=== PATIENT | female | born 1985 | race Caucasian/White ===

== ENCOUNTER 2018-06-15 06:24 | Day surgery (SDC) | payer BC ==
[2018-06-13 13:37] VITALS: BP 149/78
[2018-06-13 13:37] LABS: BASOPHILS % (AUTO) 0.5 % (0.0-5.0); HEMATOCRIT 38.1 % (36-48); LYMPHOCYTES % (AUTO) 34.7 % (21.0-51.0); MEAN CORPUSCULAR HEMOGLOBIN 31.3 pg (27.0-33.0); MEAN CORPUSCULAR HGB CONC 33.9 g/dL (32.0-36.0); MEAN CORPUSCULAR VOLUME 92.4 fL (79-99); MONOCYTES % (AUTO) 5.7 % (3.0-13.0); NEUTROPHILS % (AUTO) 58.1 % (40.0-77.0); PLATELET COUNT (AUTO) 240 K/uL (130-400); RED BLOOD CELL COUNT(AUTO) 4.13 MIL/uL (4.00-5.50); RED CELL DISTRIBUTION WIDTH 12.8 % (11.0-15.5)
[~2018-06-15] VITALS: Ht 149.9 cm; Wt 80.9 kg
[2018-06-15] VITALS (19 sets, daily range): BP systolic 109–162; BP diastolic 59–96
[2018-06-15] MEDS: CEFAZOLIN SODIUM 1 GM VIAL IVP SCH ×2 (06:00→08:30)
[~2018-06-15 06:24] MED LIST: LACTATED RINGERS 1000ML 1,000 ML IV SCH
[2018-06-15] MEDS ORDERED: SCOPOLAMINE HYDROBROMIDE 1 EACH ADH..PATCH TD ONE (07:38)
[2018-06-15] MEDS ORDERED: STRONG IODINE SOLUTION 30ML BOTTLE ONE (08:07)
[2018-06-15] MEDS ORDERED: SCOPOLAMINE HYDROBROMIDE 1 EACH ADH..PATCH TD SCH (08:15)
[2018-06-15] MEDS ORDERED: DEXAMETHASONE SOD PHOSPHATE 10MG/ML 1ML VIAL ONE (08:37)
[2018-06-15] MEDS ORDERED: LIDOCAINE PF 2% 5ML ABBOJECT ONE (08:37)
[2018-06-15] MEDS ORDERED: ONDANSETRON HCL 4 MG/2 ML VIAL ONE (08:37)
[2018-06-15] MEDS ORDERED: FENTANYL CITRATE PF 50 MCG/1 ML 2ML VIAL ONE ×2 (08:38→08:56)
[2018-06-15] MEDS ORDERED: PROPOFOL 10 MG/ML 20ML VIAL IV ONE (08:38)
[2018-06-15] MEDS ORDERED: MIDAZOLAM HCL 1 MG/ML 2ML VIAL ONE (08:38)
[2018-06-15] MEDS ORDERED: FERRIC SUBSULFATE TP ONE (10:00)
[2018-06-15] MEDS ORDERED: MEPERIDINE-PF 25 MG/ML SYG ONE (10:09)
--- NOTE | 2018-06-15 11:00 | NUR ---
RECEIVE PT RECEIVED FROM PACU VIA STRETCHER AWAKE ALERT ORIENTED X3. PT STABLE. STATES SHE HAS URGE TO VOID. OB PAD CLEAN, NO BLEEDING OR DISCHARGE NOTED.
--- NOTE | 2018-06-15 11:10 | NUR ---
ACTIVITY PT ASSISTED TO BATHROOM, AMBULATED WITHOUT ANY PROBLEMS, VOIDED X1, CLEAR YELLOW URINE.
[2018-06-15] MEDS ORDERED: IBUPROFEN 800 MG TAB PO SCH (11:30)
--- NOTE | 2018-06-15 11:30 | NUR ---
ABDOMINAL CRAMPS PT STATES SHE HAS ABDOMINAL CRAMPS SCALE OF 5, ASKED IF SHE CAN TAKE RX IBUPROFEN HERE BEFORE GOING HOME. PAGED DR. VERDE.
--- NOTE | 2018-06-15 11:40 | NUR ---
CALL BACK CALL BACK FROM DR. VERDE. PER DR. VERDE, MAY GIVE IBUPROFEN 800 MG PO X1 PRIOR TO DISCHARGE.
--- NOTE | 2018-06-15 11:45 | NUR ---
NOTE IBUPROFEN 800MG POX1 GIVEN TO PT WITH CRACKERS. PT TOLERATED WELL. INSTRUCTED PT THAT IF SHE NEEDS TO TAKE IBUPROFEN AGAIN, NEXT DOSE IS AFTER 8 HOURS. VERBALIZED UNDERSTANDING.
--- NOTE | 2018-06-15 11:55 | NUR ---
DISCHARGE PT STATES SHE IS READY TO GO HOME, WILL REST AT HOME. PT NOT IN ANY APPARENT DISTRESS. VOIDED PRIOR TO DISCHARGE. DISCHARGE INSTRUCTIONS GIVEN TO SISTER AND PT, BOTH VERBALIZED UNDERSTANDING.
== END 2018-06-15 11:55 | disposition home or self-care (01) ==
LOC: DAH 06:24
PROVIDERS: ATTEND Obstetrics & Gynecology
DX: D06.9 Carcinoma in situ of cervix, unspecified (principal); I10 Essential (primary) hypertension; Z85.42 Personal history of malignant neoplasm of other parts of uterus; Z79.899 Other long term (current) drug therapy; Z98.890 Other specified postprocedural states; J30.9 Allergic rhinitis, unspecified; E66.9 Obesity, unspecified
CPT/HCPCS: 36415; 57522; 84703; 85025; 86850; 86900; 86901; A4218; A4351; A4355; A4510; A4600; J0690; J1100; J2001; J2175; J2250; J2405; J2704; J3010 ×2; J7030; J7120 ×2

== ENCOUNTER 2018-07-07 13:31 | Emergency (ER) | payer BC ==
[2018-07-07] MEDS ORDERED: DEXAMETHASONE SOD PHOSPHATE 10MG/ML 1ML VIAL ONE (14:07)
[2018-07-07] MEDS ORDERED: DiphenhydrAMINE HCL 50 MG/ML VIAL ONE (14:07)
[2018-07-07] MEDS ORDERED: KETOROLAC TROMETHAMINE 30MG/ML ONE (14:07)
[2018-07-07] MEDS ORDERED: ONDANSETRON HCL 4 MG/2 ML VIAL ONE (14:17)
[2018-07-07 14:33] LABS: APPEARANCE,URINE Clear (CLEAR); BILIRUBIN,URINE Negative (NEGATIVE); COLOR,URINE Yellow (YELLOW); GLUCOSE, URINE (UA) Negative (NEGATIVE); KETONES,URINE Negative (NEGATIVE); LEUKOCYTE ESTERASE ,URINE Small (NEGATIVE); NITRATE,URINE Negative (NEGATIVE); OCCULT BLOOD,URINE Trace (NEGATIVE); PROTEIN,URINE Negative (NEGATIVE); UROBILINOGEN,URINE 0.2 mg/dL (0.2-1.0)
[2018-07-07 14:35] LABS: HCG,QUAL RESULT NEGATIVE (NEGATIVE)
[2018-07-07 14:58] LABS: BACTERIA,URINE Few /HPF (None Seen); WBC,URINE 0-1 /HPF (0-1); YEAST,URINE BUDDING Few /HPF (None Seen)
[2018-07-07 14:59] LABS: MUCUS,URINE Few LPF (None Seen); SQUAMOUS EPITHELIAL CELL,UR Few /HPF (0-2)
== END 2018-07-07 15:23 | disposition home or self-care (01) ==
LOC: EDH 13:31
DX: G43.909 Migraine, unspecified, not intractable, without status migrainosus (principal); R11.2 Nausea with vomiting, unspecified
CPT/HCPCS: 81001; 81025; 96361; 96374; 96375; 99284; J1100; J1200; J1885; J2405

== ENCOUNTER 2018-11-27 13:00 | Inpatient (IN) | payer BC ==
[~2018-11-27] VITALS: Ht 154.9 cm; Wt 80.1 kg
[2018-12-18 16:32] VITALS: BP 167/84
[2018-12-19] MEDS ORDERED: CEFAZOLIN SODIUM 1 GM VIAL IVP SCH (12:30)
[2018-12-26 08:52] LABS: BASOPHILS % (AUTO) 0.4 % (0.0-5.0); EOSINOPHILS % (AUTO) 1.5 % (0.0-8.0); HEMATOCRIT 41.8 % (36-48); LYMPHOCYTES % (AUTO) 24.8 % (21.0-51.0); MEAN CORPUSCULAR HEMOGLOBIN 31.8 pg (27.0-33.0); MEAN CORPUSCULAR HGB CONC 34.5 g/dL (32.0-36.0); MEAN CORPUSCULAR VOLUME 91.9 fL (79-99); MONOCYTES % (AUTO) 8.8 % (3.0-13.0); NEUTROPHILS % (AUTO) 64.5 % (40.0-77.0); PLATELET COUNT (AUTO) 216 K/uL (130-400); RED BLOOD CELL COUNT(AUTO) 4.55 MIL/uL (4.00-5.50); RED CELL DISTRIBUTION WIDTH 12.6 % (11.0-15.5); WHITE BLOOD COUNT (AUTO) 5.7 K/uL (4.8-10.8)
[2018-12-28] VITALS (23 sets, daily range): BP systolic 111–164; BP diastolic 62–96
[2018-12-28] MEDS: CEFAZOLIN SODIUM 1 GM VIAL IVP SCH ×2 (07:00→10:02)
[2018-12-28] MEDS ORDERED: SCOPOLAMINE HYDROBROMIDE 1 EACH ADH..PATCH TD ONE (07:12)
[2018-12-28] MEDS: LACTATED RINGERS 1000ML 1,000 ML IV SCH (07:27)
[2018-12-28] MEDS ORDERED: DEXAMETHASONE SOD PHOSPHATE 10MG/ML 1ML VIAL ONE (07:45)
[2018-12-28] MEDS ORDERED: SUCCINYLCHOLINE 200MG/10ML SYR ONE (07:45)
[2018-12-28] MEDS ORDERED: LIDOCAINE PF 2% 5ML ABBOJECT ONE (07:45)
[2018-12-28] MEDS ORDERED: ONDANSETRON HCL 4 MG/2 ML VIAL ONE (07:45)
[2018-12-28] MEDS ORDERED: GLYCOPYRROLATE 1 MG/5 ML SYRINGE ONE (07:46)
[2018-12-28] MEDS ORDERED: PROPOFOL 10 MG/ML 20ML VIAL IV ONE (07:46)
[2018-12-28] MEDS ORDERED: MIDAZOLAM HCL 1 MG/ML 2ML VIAL ONE ×2 (07:46→08:07)
[2018-12-28] MEDS ORDERED: NEOSTIGMINE 5MG/5ML SYR IV ONE (07:46)
[2018-12-28] MEDS ORDERED: ROCURONIUM 10MG/1ML SYR 10 MG/ML ML ONE (07:46)
[2018-12-28] MEDS ORDERED: FENTANYL CITRATE PF 50 MCG/1 ML 2ML VIAL ONE ×2 (07:47→11:11)
[2018-12-28] MEDS ORDERED: DURAMORPH PF1 MG/ML 10ML AMP IV ONE (07:50)
[2018-12-28] MEDS ORDERED: SCOPOLAMINE HYDROBROMIDE 1 EACH ADH..PATCH TD SCH (08:15)
[2018-12-28] MEDS ORDERED: CALDOLOR 800MG+NS 250ML 250 ML IV ONE (10:42)
[2018-12-28] MEDS ORDERED: CALDOLOR 800MG+NS 250ML 250 ML IV SCH (11:30)
[2018-12-28] MEDS ORDERED: MEPERIDINE-PF 25 MG/ML SYG ONE ×2 (11:39→12:48)
[2018-12-28] MEDS ORDERED: IBUPROFEN 600 MG TABLET PO PRN (11:45)
[2018-12-28] MEDS ORDERED: BISACODYL 10 MG SUPP.RECT RC PRN (11:45)
[2018-12-28] MEDS: CALDOLOR 800MG+NS 250ML 250 ML IV SCH ×2 (11:45→19:41)
[2018-12-28] MEDS ORDERED: MEPERIDINE-PF 75 MG/ML SYG IM PRN (11:45)
[2018-12-28] MEDS ORDERED: ACETAMINOPHEN-CODEINE 300/30MG TAB PO PRN (11:45)
[2018-12-28] MEDS ORDERED: PROMETHAZINE HCL 25 MG/ML 1ML AMPULE IM PRN ×2 (11:45)
[2018-12-28] MEDS ORDERED: MEPERIDINE-PF 50 MG/ML SYG ONE (12:48)
--- NOTE | 2018-12-28 13:05 | NUR ---
SPOKE WITH DR. VERDE TO INFORM THAT PATIENT IS C/O ITCHING. NEW ORDERS RECEIVED.
[2018-12-28] MEDS ORDERED: DiphenhydrAMINE HCL 50 MG/ML VIAL IVP PRN (13:15)
[2018-12-28] MEDS ORDERED: ONDANSETRON HCL 4 MG/2 ML VIAL IVP PRN (13:15)
--- NOTE | 2018-12-28 15:05 | NUR ---
PULSE NOTED TO BE LOW 100'S-110'S. PATIENT IS RESTING WITH EYES CLOSED, CHEST RISING AND FALLING IN NORMAL PATTERN. NO DISTRESS NOTED. DRESSING IS DRY AND INTACT, OB PAD IS CLEAN AND DRY. UPON ASSESSING PATIENT IS AROUSED, PAIN REPORTED 2/10. PULSE 112. CHARGE NURSE NOTIFIED OF PULSE.
--- NOTE | 2018-12-28 15:08 | NUR ---
TRACEY RODRIGUEZ CRNA NOTIFIED OF PULSE. INFORMED ON PATIENT'S STATUS, NO BLEEDING NOTED. NOTIFIED ON STARTING H&H AND CURRENT BP'S. NEW ORDERS RECEIVED TO BOLUS 500ML-1L OF LACTATED RINGERS. PULSE AND BLOOD PRESSURE ARE TO BE MONITORED, IF BLOOD PRESSURE DROPS TO BE CALLED BACK.
[2018-12-28] MEDS ORDERED: LACTATED RINGERS 1000ML IV ONE (15:30)
--- NOTE | 2018-12-28 15:55 | NUR ---
SPOKE WITH DR. VERDE TO INFORM THAT PATIENT IS REQUESTING MEDICATION FOR ANXIETY. ALSO INFORMED ON PULSE OF 124 WHEN IN ROOM. INFORMED ON PREVIOUS ORDERS FROM ADONIS GOINS. NEW ORDERS RECEIVED FROM DR. VERDE FOR CBC NOW.
[2018-12-28] MEDS ORDERED: LORAZEPAM 2 MG/ML 1 ML VIAL IVP ONE (16:00)
[2018-12-28 16:07] LABS: HEMATOCRIT 40.2 % (36-48); MEAN CORPUSCULAR HEMOGLOBIN 31.4 pg (27.0-33.0); MEAN CORPUSCULAR VOLUME 92.2 fL (79-99); PLATELET COUNT (AUTO) 216 K/uL (130-400); RED BLOOD CELL COUNT(AUTO) 4.36 MIL/uL (4.00-5.50); RED CELL DISTRIBUTION WIDTH 12.4 % (11.0-15.5); WHITE BLOOD COUNT (AUTO) 11.3 K/uL (4.8-10.8)
--- NOTE | 2018-12-28 17:50 | NUR ---
SPOKE WITH AND RESULTS OF CBC. INFORMED ON PULSE STILL BEING HIGH AND PATIENT C/O FEELING ANXIOUS. NEW ORDERS RECEIVED.
[2018-12-28] MEDS ORDERED: LORAZEPAM 1 MG TABLET ONE (23:50)
--- NOTE | 2018-12-28 23:54 | NUR ---
0.5mg of ativan p.o given to pt. 0.5mg wasted via pysix and witnessed by Fannie Perry RN
[2018-12-29] MEDS ORDERED: LORAZEPAM 0.5 MG TABLET PO SCH
[2018-12-29] MEDS: LACTATED RINGERS 1000ML 1,000 ML IV SCH (03:03)
[2018-12-29] MEDS: CALDOLOR 800MG+NS 250ML 250 ML IV SCH (03:23)
[2018-12-29 03:30] VITALS: BP 117/62
[2018-12-29 07:10] VITALS: BP 124/72
[2018-12-29] MEDS: SIMETHICONE 80 MG TAB.CHEW PO PRN ×3 (08:00→21:13)
[2018-12-29] MEDS: DOCUSATE SODIUM 100 MG CAP PO PRN ×2 (08:00→20:08)
[2018-12-29 08:18] LABS: HEMATOCRIT 36.1 % (36-48); MEAN CORPUSCULAR HEMOGLOBIN 31.7 pg (27.0-33.0); MEAN CORPUSCULAR HGB CONC 33.7 g/dL (32.0-36.0); MEAN CORPUSCULAR VOLUME 93.9 fL (79-99); PLATELET COUNT (AUTO) 198 K/uL (130-400); RED BLOOD CELL COUNT(AUTO) 3.84 MIL/uL (4.00-5.50); RED CELL DISTRIBUTION WIDTH 12.8 % (11.0-15.5); WHITE BLOOD COUNT (AUTO) 8.7 K/uL (4.8-10.8)
--- NOTE | 2018-12-29 09:30 | NUR ---
CAVAZOS CAVAZOS D/C'D WITH TIP INTACT. PT TOLERATED WELL. NO COMPLAINTS AT THIS TIME.
[2018-12-29] MEDS: LORAZEPAM 1 MG TABLET PO SCH ×2 (09:37→16:52)
--- NOTE | 2018-12-29 09:40 | NUR ---
DR. KAVITHA VERDE AT BEDSIDE TO ASSESS AND TALK TO PT. NEW ORDERS RECEIVED.
[2018-12-29] MEDS: IBUPROFEN 800 MG TAB PO SCH ×3 (11:26→22:21)
[2018-12-29 11:28] VITALS: BP 118/75
[2018-12-29] MEDS: HYDROCODONE/ACETAMINOPHEN 5/325 MG TAB PO PRN ×2 (14:25→20:15)
--- NOTE | 2018-12-29 14:45 | NUR ---
REPORT GIVEN TO KRISTA GUO RN FOR CONTINUITY OF CARE.
--- NOTE | 2018-12-29 14:50 | NUR ---
REPORT RECEIVED FROM Chiki HOLLINGSWORTH RN AND PATIENT CARE TRANSFERED AT THIS TIME.
[2018-12-29 16:00] VITALS: BP 118/73
--- NOTE | 2018-12-29 16:12 | NUR ---
D/C PLAN CM spoke to pt regarding d/c planning. Pt is independent and lives with her children. States friend will be assisting in care as needed. Plan to home. No needs verbalized or identified. CM to f/u. Addendum: 12/29/18 at 1613 by FILIBERTO PATIÑO CM Amended: Links added.
--- NOTE | 2018-12-29 18:00 | NUR ---
PATIENT WAS TRANSFERED TO ROOM 112 FOR TRANSFER OF CARE TO L/D. PATIENT THEN AMBULATED IN HALLWAY. DISCHARGE INSTRUCTIONS INITIATED AND INSTRUCTED PATIENT TO MAKE SURE SHE GETS HER SCRIPT FOR HOME PAIN MANAGEMENT AFTER DR. VERDE ROUNDS IN A.M.
--- NOTE | 2018-12-29 19:30 | NUR ---
Pt reports "the pain on my lower abdomen is starting up again" rating discomfort at 2/10; offering prn pain med due after 1999, pt voices understanding, agrees to prn pain med after 1999. Removing abd binder, pt reporting swelling to right of incision, noted slight puffiness, palpates soft, no tenderness elicited during palpation; pt reports "looks swollen compared to the left side"; informing will continue to observe, reassuring by explaining no firmness or tenderness to site noted at present vs firmness & tenderness will occur is bleeding under site. Pt & sister voice understanding & agree to teaching. Instructing pt to report increase bleeding, tenderness or pain for further assessment, pt agrees to instructions. New clean binder applied after pt voiding, telfa to incision site. Addendum: 12/29/18 at 1948 by LEXIS FLANNERY RN RN Amended: Links added.
--- NOTE | 2018-12-29 19:45 | NUR ---
Pt ambulating in hallway with sister/friend. Slow steady gait noted.
--- NOTE | 2018-12-29 20:00 | NUR ---
Negative [place] Sign to BLE Addendum: 12/29/18 at 2140 by LEXIS FLANNERY RN RN Amended: Links added.
[2018-12-29 20:15] VITALS: BP 128/68
--- NOTE | 2018-12-29 20:30 | NUR ---
Pt reports "the pain is not getting better"; offering dulcolax suppository & warm pack to abd; pt refusing dulcolax supp; agrees to warm pack to abd. Heating pad activated & wrapped in bath towel given to pt who place pad to lower abd while lying in bed, low fowlers. Sister & spouse at bedside.
--- NOTE | 2018-12-29 20:55 | NUR ---
Dr Hopson notified of pt current discomfort of pain to lower abd 10/10; [place] 1 tab given 45minutes ago with little relief. Orders received for [place] 1 tab now & prn 1-2 tabs q 6 hours, to continue with Ibuprofen 800mg po & may give Demerol 50mg/Phenergan 25mg IM for discomfort if not relieved after prn & scheduled pain meds administered.
[2018-12-29] MEDS ORDERED: MEPERIDINE-PF 50 MG/ML SYG IM PRN (21:00)
[2018-12-29] MEDS ORDERED: PROMETHAZINE HCL 25 MG/ML 1ML AMPULE IM PRN (21:00)
[2018-12-29] MEDS ORDERED: HYDROCODONE/ACETAMINOPHEN 5/325 MG TAB PO PRN (21:00)
--- NOTE | 2018-12-29 21:00 | NUR ---
Pt reports "the pain is still there", explaining normal sensation due to decrease in anesthesia effect; Informed md notified and prn pain med ordered, pt voices understanding & agrees to med administration
--- NOTE | 2018-12-29 21:15 | NUR ---
Second [place] 1 tab given po. Reinforcing teaching on pain med desired effects & possible side effects; informing possible constipation is a common side effect that can lead to gas pain radiating to right shoulder. Pt voices understanding, inquiring "Is the doctor going to give me a prescriptions for the hydrocodone to take at home?" Reinforcing teaching on rx already given for tyelnol #3 po and Ibuprofen for discomfort; pt agrees states "those will not help", encouraging freq walking & increase fluid intake, alternating with tylenol #3 and ibuprofen for pain control at home. Pt voices understanding & agrees to teaching, denies questions at present.
--- NOTE | 2018-12-29 21:35 | NUR ---
Pt reports pain is still there, states "the heating pad helps " second heating pad given, pt applying to lower abd. Addendum: 12/29/18 at 2136 by LEXIS FLANNERY RN RN Amended: Links added.
--- NOTE | 2018-12-29 22:20 | NUR ---
Pt asleep, awoke with verbal greeting. Explaining scheduled Motrin due, pt voices understanding & agrees to med adm. Reports "the pain is still a 10/10 but the heating pad is helping"
--- NOTE | 2018-12-29 23:15 | NUR ---
Found pt asleep, awakes easily with verbal greeting; Pt reports discomfort as "soreness, but the medications help me tolerate it", continues rating discomfort at 10/10. Denies need for pain med at present.
[2018-12-29 23:16] VITALS: BP 126/76
[2018-12-30] MEDS: LORAZEPAM 1 MG TABLET PO SCH ×2 (00:31→08:12)
[2018-12-30] MEDS: HYDROCODONE/ACETAMINOPHEN 5/325 MG TAB PO PRN ×2 (03:34→09:03)
[2018-12-30 03:41] VITALS: BP 136/81
--- NOTE | 2018-12-30 03:44 | NUR ---
Pt reports 'the pain has become unbearable" requesting pain med. [place] 2 tab given po. Offering dulcolax suppository to facilitate a BM that could contribute to decrease in discomfort & prevent gas pain; pt refusing suppository; requesting prune juice and heating pad. Both provided as per request Addendum: 12/30/18 at 0346 by LEXIS FLANNERY RN RN Amended: Links added.
[2018-12-30] MEDS: IBUPROFEN 800 MG TAB PO SCH (06:32)
[2018-12-30 08:10] VITALS: BP 134/81
--- NOTE | 2018-12-30 08:12 | NUR ---
COMFORT/ANXIETY PT SITTING IN ON COMMODE. C/O PRESSURE FROM ABD GAS AND NAUSEA. PT REQUESTS ATIVAN FOR ANXIETY AND STATES IS PASSING GAS. ATIVAN 0.5 MG GIVEN PO
--- NOTE | 2018-12-30 08:40 | NUR ---
COMFORT/ELIMINATION PT STATES HAD BM OF SOLID CONSISTENCY AND OBTAINED GOOD RELIEF FROM ABD DISCOMFORT.
--- NOTE | 2018-12-30 09:00 | NUR ---
PAIN/ KNOWLEDGE [place] TABS 2 GIVEN PO FOR PAIN SCALE OF 6 TO INCISION. PT D/C INSTRUCTIONS GIVEN PREVIOUSLY AND PT STATES HAS NO QUESTIONS AT THIS TIME.
[2018-12-30] MEDS: DOCUSATE SODIUM 100 MG CAP PO PRN (09:02)
[2018-12-30 09:20] VITALS: BP 128/80
--- NOTE | 2018-12-30 09:45 | NUR ---
DISCHARGE PT TAKEN TO PRIVATE CAR PER W/C C NO DISTRESS. PT TOLERATED WELL.
== END 2018-12-30 09:45 | disposition home or self-care (01) | DRG 743 ==
LOC: EDSTATUS 13:00 → DAHIP 12-28 06:43 → WSH 12-28 12:40
PROVIDERS: ADMIT Obstetrics & Gynecology; ATTEND Obstetrics & Gynecology
PROC: 0UT90ZZ Resection of Uterus, Open Approach (ICD-10-PCS; principal; 2018-12-28 09:47)
PROC: 0UB70ZZ Excision of Bilateral Fallopian Tubes, Open Approach (ICD-10-PCS; 2018-12-28 09:47)
DX: N87.9 Dysplasia of cervix uteri, unspecified (principal); Z98.891 History of uterine scar from previous surgery; E66.9 Obesity, unspecified; Z68.33 Body mass index [BMI] 33.0-33.9, adult; F41.9 Anxiety disorder, unspecified
CPT/HCPCS: 36415; 84703; 85025; 85027; 86850; 86900; 86901; A4344; G0378; J0330; J0690; J1100; J1200; J1741; J2001; J2060; J2175; J2250; J2274; J2405; J2550; J2704; J2710; J3010; J3490; J7030; J7120

== ENCOUNTER 2019-05-25 15:40 | Emergency (ER) | payer BC ==
[2019-05-25 16:23] LABS: BASOPHILS % (AUTO) 0.2 % (0.0-5.0); EOSINOPHILS % (AUTO) 0.4 % (0.0-8.0); HEMATOCRIT 41.9 % (36-48); LYMPHOCYTES % (AUTO) 2.2 % (21.0-51.0); MEAN CORPUSCULAR HEMOGLOBIN 31.3 pg (27.0-33.0); MEAN CORPUSCULAR HGB CONC 35.1 g/dL (32.0-36.0); MEAN CORPUSCULAR VOLUME 89.3 fL (79-99); MONOCYTES % (AUTO) 3.6 % (3.0-13.0); NEUTROPHILS % (AUTO) 93.3 % (40.0-77.0); PLATELET COUNT (AUTO) 175 K/uL (130-400); RED BLOOD CELL COUNT(AUTO) 4.69 MIL/uL (4.00-5.50); RED CELL DISTRIBUTION WIDTH 11.9 % (11.0-15.5); WHITE BLOOD COUNT (AUTO) 10.4 K/uL (4.8-10.8)
[2019-05-25 16:43] LABS: ALBUMIN 3.7 g/dL (3.5-5.0); BILIRUBIN,TOTAL 0.8 mg/dL (0.2-1.0); TOTAL PROTEIN, SERUM 7.9 g/dL (6.0-8.3)
[2019-05-25] MEDS ORDERED: ONDANSETRON HCL 4 MG/2 ML VIAL ONE (17:13)
[2019-05-25] MEDS ORDERED: SODIUM CHLORIDE 0.9% 1000ML 1,000 ML IV ONE (17:13)
[2019-05-25 17:57] LABS: APPEARANCE,URINE Cloudy (CLEAR); BILIRUBIN,URINE Negative (NEGATIVE); COLOR,URINE Yellow (YELLOW); GLUCOSE, URINE (UA) Negative (NEGATIVE); KETONES,URINE 15 mg/dL (NEGATIVE); LEUKOCYTE ESTERASE ,URINE Negative (NEGATIVE); NITRATE,URINE Negative (NEGATIVE); OCCULT BLOOD,URINE Negative (NEGATIVE); PH,URINE 5.5 (5.0-8.0); PROTEIN,URINE Negative (NEGATIVE); UROBILINOGEN,URINE 0.2 mg/dL (0.2-1.0)
[2019-05-25 18:01] LABS: HCG,QUAL RESULT NEGATIVE (NEGATIVE)
[2019-05-25 18:28] LABS: BACTERIA,URINE Few /HPF (None Seen); MUCUS,URINE Few LPF (None Seen)
== END 2019-05-25 19:07 | disposition home or self-care (01) ==
LOC: EDH 15:40
DX: A08.4 Viral intestinal infection, unspecified (principal); R11.2 Nausea with vomiting, unspecified; G43.909 Migraine, unspecified, not intractable, without status migrainosus; Z90.710 Acquired absence of both cervix and uterus
CPT/HCPCS: 36415; 80053; 81001; 81025; 83690; 85025; 96361; 96374; 99284; J2405; J7030

== ENCOUNTER 2021-08-29 05:02 | Emergency (ER) | payer BC ==
[~2021-08-29] VITALS: Ht 149.9 cm; Wt 82.1 kg
[2021-08-29] MEDS ORDERED: KETOROLAC 30MG VIAL (30MG/ML) IVP ONE (05:30)
[2021-08-29] MEDS ORDERED: ONDANSETRON 4MG INJ IVP ONE (05:30)
[2021-08-29] MEDS ORDERED: 0.9%NACL 1000ML 1,000 ML IV ONE (05:30)
[2021-08-29 05:38] LABS: APPEARANCE,URINE CLEAR (CLEAR); BASOPHILS % (AUTO) 0.2 % (0.0-5.0); BILIRUBIN,URINE NEGATIVE (NEGATIVE); COLOR,URINE YELLOW (YELLOW); EOSINOPHILS % (AUTO) 0.3 % (0.0-8.0); GLUCOSE, URINE (UA) NEGATIVE (NEGATIVE); HEMATOCRIT 41.3 % (36-48); KETONES,URINE NEGATIVE (NEGATIVE); LEUKOCYTE ESTERASE ,URINE NEGATIVE (NEGATIVE); LYMPHOCYTES % (AUTO) 13.3 % (21.0-51.0); MEAN CORPUSCULAR HEMOGLOBIN 31.7 pg (27.0-33.0); MEAN CORPUSCULAR HGB CONC 35.4 g/dL (32.0-36.0); MEAN CORPUSCULAR VOLUME 89.8 fL (79-99); MONOCYTES % (AUTO) 5.7 % (3.0-13.0); NEUTROPHILS % (AUTO) 80.1 % (40.0-77.0); NITRATE,URINE NEGATIVE (NEGATIVE); OCCULT BLOOD,URINE TRACE-INTACT (NEGATIVE); PH,URINE 7.5 (5.0-8.0); PLATELET COUNT (AUTO) 225 K/uL (130-400); PROTEIN,URINE NEGATIVE (NEGATIVE); RED CELL DISTRIBUTION WIDTH 11.9 % (11.0-15.5); UROBILINOGEN,URINE 0.2 mg/dL (0.2-1.0); WHITE BLOOD COUNT (AUTO) 13.9 K/uL (4.8-10.8)
[2021-08-29 05:42] LABS: HCG,QUAL RESULT NEGATIVE (NEGATIVE)
[2021-08-29 05:45] LABS: BACTERIA,URINE None Seen /HPF (None Seen); RBC,URINE 0-1 /HPF (0-1); SQUAMOUS EPITHELIAL CELL,UR Rare /HPF (0-2); WBC,URINE None Seen /HPF (0-1)
[2021-08-29 05:54] LABS: POTASSIUM 3.5 mmol/L (3.5-5.1)
[2021-08-29 05:58] LABS: ALBUMIN 3.8 g/dL (3.5-5.0); BILIRUBIN,TOTAL 0.6 mg/dL (0.2-1.0)
[2021-08-29] MEDS ORDERED: ONDA4TAB10 PO (07:20)
[2021-08-29] MEDS ORDERED: OXYC-38 PO (07:20)
[2021-08-29] MEDS ORDERED: ONDANSETRON 4MG INJ ONE (07:55)
[2021-08-29] MEDS ORDERED: ONDANSETRON 4MG INJ IV ONE (08:00)
[2021-08-29 08:13] VITALS: BP 127/86
== END 2021-08-29 08:15 | disposition home or self-care (01) ==
LOC: EDH 05:02
DX: K80.50 Calculus of bile duct without cholangitis or cholecystitis without obstruction (principal); Z98.890 Other specified postprocedural states
CPT/HCPCS: 36415; 76705; 80053; 81001; 81025; 83690; 85025; 96361; 96374; 96375; 99284; J1885; J2405 ×2; J7030

== ENCOUNTER 2021-10-04 06:02 | Day surgery (SDC) | payer BC ==
[2021-09-29 11:10] VITALS: BP_SYST 163; BP_SYST 182; BP_DIAS 89; BP_DIAS 95
[2021-09-29 11:25] LABS: BASOPHILS % (AUTO) 0.4 % (0.0-5.0); EOSINOPHILS % (AUTO) 1.1 % (0.0-8.0); HEMATOCRIT 41.5 % (36-48); LYMPHOCYTES % (AUTO) 29.9 % (21.0-51.0); MEAN CORPUSCULAR HEMOGLOBIN 31.8 pg (27.0-33.0); MEAN CORPUSCULAR HGB CONC 34.9 g/dL (32.0-36.0); MONOCYTES % (AUTO) 5.9 % (3.0-13.0); NEUTROPHILS % (AUTO) 62.5 % (40.0-77.0); PLATELET COUNT (AUTO) 224 K/uL (130-400); RED BLOOD CELL COUNT(AUTO) 4.56 MIL/uL (4.00-5.50); RED CELL DISTRIBUTION WIDTH 11.9 % (11.0-15.5); WHITE BLOOD COUNT (AUTO) 5.4 K/uL (4.8-10.8)
[2021-09-29 11:51] LABS: ALBUMIN 3.7 g/dL (3.5-5.0); CREATININE 0.8 mg/dL (0.5-1.5); POTASSIUM 4.3 mmol/L (3.5-5.1)
[2021-09-29 13:02] LABS: INR 0.93 (0.85-1.15); PROTHROMBIN TIME 9.8 SEC (9.6-11.6)
[2021-09-29 13:04] LABS: PARTIAL THROMBOPLASTIN TIME 25.9 SEC (26.3-35.5)
[~2021-10-04] VITALS: Ht 157.5 cm; Wt 80.6 kg
[2021-10-04] VITALS (17 sets, daily range): BP systolic 114–144; BP diastolic 59–89
[~2021-10-04 06:02] MED LIST changes: +0.9% NACL 500ML IV.SOLN 500 ML IV SCH; +CEFAZOLIN SODIUM 1 GM VIAL IVP SCH; +DICY10CA13 PO; -LACTATED RINGERS 1000ML 1,000 ML IV SCH
[2021-10-04] MEDS ORDERED: LACTATED RINGERS 1000ML 1,000 ML IV ONE (07:43)
[2021-10-04] MEDS ORDERED: PROPOFOL 10 MG/ML 20ML VIAL IV ONE (09:38)
[2021-10-04] MEDS ORDERED: MIDAZOLAM HCL 1 MG/ML 2ML VIAL ONE (09:38)
[2021-10-04] MEDS ORDERED: ROCURONIUM 10MG/1ML SYR 10 MG/ML ML ONE (09:39)
[2021-10-04] MEDS ORDERED: FENTANYL CITRATE PF 50 MCG/1 ML 5ML AMP IV ONE (09:39)
[2021-10-04] MEDS ORDERED: ONDANSETRON 4MG INJ ONE ×2 (09:48→11:28)
[2021-10-04] MEDS ORDERED: CEFAZOLIN SODIUM 2 GM VIAL IV ONE (09:50)
[2021-10-04] MEDS ORDERED: BUPIVACAINE/PF 0.5% 30ML VIAL INJ ONE (10:13)
[2021-10-04] MEDS ORDERED: NEOSTIGMINE 5MG/5ML SYR IV ONE (10:47)
[2021-10-04] MEDS ORDERED: GLYCOPYRROLATE 1 MG/5 ML SYRINGE ONE (10:47)
[2021-10-04] MEDS ORDERED: KETOROLAC 30MG VIAL (30MG/ML) ONE (10:50)
[2021-10-04] MEDS ORDERED: MEPERIDINE-PF 25 MG/ML SYG ONE ×2 (11:24→11:34)
[2021-10-04] MEDS ORDERED: METOCLOPRAMIDE 10 MG/2 ML VIAL ONE (11:28)
== END 2021-10-04 13:12 | disposition home or self-care (01) ==
LOC: DAH 06:02
PROVIDERS: ATTEND Student in an Organized Health Care Education/Training Program
DX: K80.13 Calculus of gallbladder with acute and chronic cholecystitis with obstruction (principal); K82.8 Other specified diseases of gallbladder; Z79.01 Long term (current) use of anticoagulants; Z90.710 Acquired absence of both cervix and uterus; Z98.891 History of uterine scar from previous surgery; Z82.49 Family history of ischemic heart disease and other diseases of the circulatory system; Z80.9 Family history of malignant neoplasm, unspecified
CPT/HCPCS: 36415; 80053; 84703; 85025; 85610; 85730; 87426; J0690; J1885; J2175; J2250; J2405; J2704; J2710; J2765; J3010; J3490; J7030; J7120

== ENCOUNTER → 2024-05-01 | Outpatient (CLI) | payer BC ==
[~2024-05-01] MED LIST changes: -0.9% NACL 500ML IV.SOLN 500 ML IV SCH; -CEFAZOLIN SODIUM 1 GM VIAL IVP SCH; +DICY-20 PO; -DICY10CA13 PO
--- NOTE | 2024-05-01 09:46 | HMCIMG ---
SCREENING MAMMOGRAM REASON: Annual Exam COMPARISON: None, baseline TECHNIQUE: CC and MLO views of the bilateral breasts were performed.CAD was performed as well. FINDINGS: Parenchymal density: The breasts are heterogeneously dense, which may obscure small masses. There are no focal mass lesions. There are no pathologic appearing calcifications. There is no evidence of architectural distortion or skin thickening. IMPRESSION: Normal screening mammogram The patient was entered into a reminder system with a target due date for their next mammogram. BI-RADS CATEGORY 1: NEGATIVE Recommend monthly self breast exam as well as annual clinical examination. A negative x-ray should not delay biopsy if a dominant or clinically suspicious mass is present, since 8-10% of cancers are not identified by mammography. Dense breasts particularly, may obscure an underlying neoplasm. Some of these may be detected clinically and therefore, clinical examination is an essential part of breast evaluation.
== END | disposition home or self-care (01) ==
LOC: RAH 08:02
PROVIDERS: ATTEND Nurse Practitioner Adult Health
DX: Z12.31 Encounter for screening mammogram for malignant neoplasm of breast (principal); R92.333 Mammographic heterogeneous density, bilateral breasts
CPT/HCPCS: 77067